=== PATIENT | female | born 1955 ===

== ENCOUNTER 2022-12-14 10:11 | Inpatient (IN) ==
[2022-12-14 11:29] LABS: Basophils % 0.5 % (0.0-0.8); Eosinophils # 0.2 10*3/uL (0.0-0.87); Eosinophils % 3.3 % (0.00-10.9); Hematocrit 24.2 VOL% (35.7-47.0); Hemoglobin 6.9 GM/DL (12.0-16.0); Immature Granulocytes % 1.3 %; Immature Granulocytes Absolute 0.08 #; Lymphocytes # 0.6 10*3/uL (1.4-4.0); Lymphocytes % 9.6 % (21.3-54.2); Mean Corpuscular HGB Conc 28.5 GM/DL (32-36); Mean Corpuscular Volume 103.9 FL (87-102); Mean Platelet Volume 10.6 FL (9.6-12.0); Monocytes # 0.6 10*3/uL (0.11-0.8); Monocytes % 9.2 % (1.7-12.7); NRBC # 0.03 10*3/uL; Neutrophils % 76.1 % (38.7-73.9); Platelet Count 132 T/CUMM (130-400); Red Blood Count 2.33 MC/CUMM (3.8-5.5); Red Cell Distribution Width 17.4 % (9.3-17.3); White Blood Count 6.3 T/CUMM (4-12)
[2022-12-14 11:49] LABS: INR 1.1; PT Patient Result 12.1 SECS (10.1-12.1)
[2022-12-14 11:52] LABS: Albumin 2.5 G/DL (3.4-5.0); Bilirubin,Total 0.4 MG/DL (0.20-1.00); Calcium 6.2 MG/DL (8.5-10.1); Osmolality,Calculated 329.7 MOS/KG (273-304); Potassium 4.4 MMOL/L (3.5-5.1); Total Protein 6.6 G/DL (6.4-8.2)
[2022-12-14] MEDS ORDERED: SODIUM CHLORIDE 0.9% 1,000 ML IV STA (11:55)
[2022-12-14] MEDS ORDERED: BISACODYL 5 MG TABLET PO PRN (11:57)
[2022-12-14] MEDS ORDERED: ACETAMINOPHEN 325 MG TABLET PO PRN (11:57)
[2022-12-14] MEDS ORDERED: HYDROmorphone 1 MG/1 ML SYRINGE IV PRN (11:57)
[2022-12-14 12:05] LABS: Anisocytosis Slight; Macrocytosis Slight; Microcytosis Slight; Platelet Estimate Adequate
[2022-12-14 12:06] LABS: Polychromasia Slight
[2022-12-14] MEDS ORDERED: GLUCAGON 1 MG VIAL IM PRN (12:36)
[2022-12-14] MEDS ORDERED: SODIUM CHLORIDE 0.9% 1,000 ML IV PRN (12:38)
[2022-12-14] MEDS ORDERED: DEXTROSE 10% 250 ML BAG IV PRN (12:51)
[2022-12-14] MEDS: PIPERACILLIN/TAZOBACTAM 3,375 MG in SODIUM CHLORIDE 0.9% 100 ML IV SCH (12:52)
[2022-12-14] MEDS: LACTATED RINGERS 1,000 ML IV SCH (14:08)
[2022-12-14] MEDS ORDERED: VANCOMYCIN INJ 2,500 MG in SODIUM CHLORIDE 0.9% 500 ML IV ONE (15:00)
[2022-12-14] MEDS ORDERED: FUROSEMIDE 40 MG/4 ML VIAL IV ONE ×2 (17:06→19:30)
[2022-12-15] MEDS: PIPERACILLIN/TAZOBACTAM 3,375 MG in SODIUM CHLORIDE 0.9% 100 ML IV SCH ×3 (00:26→23:23)
[2022-12-15 01:18] LABS: Hematocrit 27.2 VOL% (35.7-47.0); Hemoglobin 7.9 GM/DL (12.0-16.0)
[2022-12-15 05:08] LABS: Basophils % 0.6 % (0.0-0.8); Eosinophils # 0.2 10*3/uL (0.0-0.87); Eosinophils % 3.3 % (0.00-10.9); Hemoglobin 8.2 GM/DL (12.0-16.0); Immature Granulocytes % 1.7 %; Immature Granulocytes Absolute 0.12 #; Lymphocytes # 0.7 10*3/uL (1.4-4.0); Lymphocytes % 9.7 % (21.3-54.2); Mean Corpuscular HGB Conc 29.3 GM/DL (32-36); Mean Corpuscular Volume 101.4 FL (87-102); Mean Platelet Volume 10.8 FL (9.6-12.0); Monocytes # 0.6 10*3/uL (0.11-0.8); Monocytes % 8.7 % (1.7-12.7); NRBC # 0.04 10*3/uL; Platelet Count 127 T/CUMM (130-400); Red Blood Count 2.76 MC/CUMM (3.8-5.5); White Blood Count 6.9 T/CUMM (4-12)
[2022-12-15 05:34] LABS: Albumin 2.3 G/DL (3.4-5.0); Bilirubin,Total 0.4 MG/DL (0.20-1.00); Calcium 6.3 MG/DL (8.5-10.1); Osmolality,Calculated 326.8 MOS/KG (273-304); Potassium 4.5 MMOL/L (3.5-5.1); Total Protein 6.6 G/DL (6.4-8.2)
[2022-12-15] MEDS ORDERED: VANCOMYCIN INJ 1,500 MG in SODIUM CHLORIDE 0.9% 500 ML IV PRN (08:02)
[2022-12-15] MEDS ORDERED: SODIUM BICARBONATE 650 MG TABLET PO SCH (09:00)
[2022-12-15] MEDS: LACTATED RINGERS 1,000 ML IV SCH ×2 (09:08)
[2022-12-15] MEDS: PANTOPRAZOLE 40 MG TABLET PO SCH (09:08)
[2022-12-15] MEDS ORDERED: LACTATED RINGERS 1,000 ML IV SCH (10:00)
[2022-12-15] MEDS ORDERED: fentaNYL 100 MCG/2 ML VIAL ONE (10:19)
[2022-12-15] MEDS ORDERED: MIDAZOLAM 2 MG/2 ML VIAL ONE (10:20)
[2022-12-15] MEDS: SODIUM BICARBONATE 650 MG TABLET PO SCH (21:10)
[2022-12-15] MEDS: HEPARIN 5,000 UNIT/1 ML VIAL SUBCUT SCH (21:10)
[2022-12-15] MEDS: ATORVASTATIN 40 MG TABLET PO SCH (21:10)
[2022-12-16 03:35] LABS: Arterial Base Excess iSTAT -13 MMOL/L (-2.5-2.5); Arterial Bicarbonate iSTAT 14.6 MMOL/L (20-26); Arterial O2 Saturation iSTAT 81 % (95-100); Arterial PCO2 iSTAT 38 MM HG (35-48); Arterial PO2 iSTAT 55 MM HG (80-95); Arterial Total CO2 iSTAT 16 MMO/L (23-27); Arterial pH iSTAT 7.191 (7.35-7.45)
[2022-12-16] MEDS ORDERED: SODIUM BICARBONATE 50 MEQ/50 ML VIAL IV ONE (03:48)
[2022-12-16 06:12] LABS: Calcium 6.5 MG/DL (8.5-10.1); Osmolality,Calculated 324.7 MOS/KG (273-304); Potassium 4.9 MMOL/L (3.5-5.1)
[2022-12-16 06:20] LABS: 25 Hydroxy Vitamin D Total 20.9 NG/ML (30-100); Basophils # 0.1 10*3/uL (0.0-0.2); Basophils % 0.8 % (0.0-0.8); Eosinophils # 0.2 10*3/uL (0.0-0.87); Eosinophils % 3.5 % (0.00-10.9); Folate 15.55 NG/ML (5.38-24.0); Hemoglobin 7.7 GM/DL (12.0-16.0); Immature Granulocytes % 2.2 %; Immature Granulocytes Absolute 0.13 #; Lymphocytes # 0.7 10*3/uL (1.4-4.0); Mean Corpuscular HGB Conc 28.2 GM/DL (32-36); Mean Corpuscular Volume 101.9 FL (87-102); Mean Platelet Volume 10.3 FL (9.6-12.0); Monocytes # 0.6 10*3/uL (0.11-0.8); Monocytes % 9.8 % (1.7-12.7); NRBC # 0.04 10*3/uL; Neutrophils % 72.7 % (38.7-73.9); Platelet Count 131 T/CUMM (130-400); Red Blood Count 2.68 MC/CUMM (3.8-5.5); Red Cell Distribution Width 18.6 % (9.3-17.3)
[2022-12-16 06:22] LABS: Hematocrit 27.3 VOL% (35.7-47.0); Uric Acid 11.6 MG/DL (2.6-6.0)
[2022-12-16 06:23] LABS: % Iron Saturation 13.9 % (18-50); Ferritin 121.5 ng/mL (8-252)
[2022-12-16 07:33] LABS: Anisocytosis 2+; Burr Cells Few; Macrocytosis 1+; Ovalocytes Few; Platelet Estimate Adequate
[2022-12-16] MEDS: ONDANSETRON 4 MG/2 ML VIAL IV PRN ×2 (07:55→17:04)
[2022-12-16] MEDS ORDERED: DEXTROSE 50% 25 GM/50 ML VIAL IV PRN (08:20)
[2022-12-16] MEDS ORDERED: GLUCAGON 1 MG VIAL IM PRN (08:20)
[2022-12-16] MEDS: NEBIVOLOL 10 MG TABLET PO SCH (09:32)
[2022-12-16] MEDS: SODIUM BICARBONATE 650 MG TABLET PO SCH ×3 (09:32→20:22)
[2022-12-16] MEDS: ASPIRIN EC 81 MG TABLET PO SCH (09:33)
[2022-12-16] MEDS: amLODIPine 2.5 MG TABLET PO SCH (09:33)
[2022-12-16] MEDS: CHOLECALCIFEROL 1,000 UNIT TABLET PO SCH (09:34)
[2022-12-16] MEDS: FOLIC ACID 1 MG TABLET PO SCH (09:34)
[2022-12-16] MEDS: MULTIVITAMIN (CENTRUM) TABLET PO SCH (09:35)
[2022-12-16] MEDS: FERROUS SULFATE 325 MG TABLET PO SCH ×2 (09:35→17:07)
[2022-12-16] MEDS: PANTOPRAZOLE 40 MG TABLET PO SCH (09:35)
[2022-12-16] MEDS: ISOSORBIDE MONONITRATE 30 MG TABLET PO SCH (09:36)
[2022-12-16] MEDS: HEPARIN 5,000 UNIT/1 ML VIAL SUBCUT SCH (09:37)
[2022-12-16 09:47] LABS: Arterial Base Excess iSTAT -13 MMOL/L (-2.5-2.5); Arterial Bicarbonate iSTAT 14.2 MMOL/L (20-26); Arterial O2 Saturation iSTAT 96 % (95-100); Arterial PCO2 iSTAT 38 MM HG (35-48); Arterial PO2 iSTAT 102 MM HG (80-95); Arterial Total CO2 iSTAT 15 MMO/L (23-27); Arterial pH iSTAT 7.181 (7.35-7.45)
[2022-12-16 12:21] LABS: Calcium 6.2 MG/DL (8.5-10.1); Osmolality,Calculated 327.6 MOS/KG (273-304); Potassium 4.9 MMOL/L (3.5-5.1)
[2022-12-16] MEDS: PIPERACILLIN/TAZOBACTAM 3,375 MG in SODIUM CHLORIDE 0.9% 100 ML IV SCH (12:30)
[2022-12-16] MEDS: ATORVASTATIN 40 MG TABLET PO SCH (20:22)
[2022-12-17] MEDS: PIPERACILLIN/TAZOBACTAM 3,375 MG in SODIUM CHLORIDE 0.9% 100 ML IV SCH ×3 (00:25→23:54)
[2022-12-17 05:00] LABS: Basophils % 0.2 % (0.0-0.8); Eosinophils % 0.5 % (0.00-10.9); Hematocrit 26.7 VOL% (35.7-47.0); Hemoglobin 7.8 GM/DL (12.0-16.0); Immature Granulocytes % 2.4 %; Immature Granulocytes Absolute 0.16 #; Lymphocytes # 0.6 10*3/uL (1.4-4.0); Mean Corpuscular HGB Conc 29.2 GM/DL (32-36); Mean Corpuscular Volume 102.3 FL (87-102); Mean Platelet Volume 10.5 FL (9.6-12.0); Monocytes # 0.6 10*3/uL (0.11-0.8); Monocytes % 8.6 % (1.7-12.7); NRBC # 0.02 10*3/uL; Neutrophils % 79.3 % (38.7-73.9); Platelet Count 117 T/CUMM (130-400); Red Blood Count 2.61 MC/CUMM (3.8-5.5); Red Cell Distribution Width 18.6 % (9.3-17.3); White Blood Count 6.7 T/CUMM (4-12)
[2022-12-17 05:12] LABS: Calcium 6.3 MG/DL (8.5-10.1); Osmolality,Calculated 326.7 MOS/KG (273-304); Potassium 5.2 MMOL/L (3.5-5.1)
[2022-12-17 05:17] LABS: Hypochromia 1+; Platelet Estimate Normal
[2022-12-17] MEDS ORDERED: BUPIVACAINE MPF 0.25% 10 ML VIAL ONE (07:57)
[2022-12-17] MEDS ORDERED: TISSUE ADHESIVE 1 EACH APPLICATOR TOP ONE (07:57)
[2022-12-17] MEDS ORDERED: HEPARIN 5,000 UNIT/1 ML VIAL ONE (07:57)
[2022-12-17] MEDS ORDERED: LIDOCAINE 1%/EPI INJ 20 ML VIAL ONE (07:58)
[2022-12-17] MEDS ORDERED: fentaNYL 100 MCG/2 ML VIAL ONE (08:01)
[2022-12-17] MEDS ORDERED: propofoL 200 MG/20 ML VIAL IV ONE (08:01)
[2022-12-17] MEDS ORDERED: SODIUM CHLORIDE 0.9% 250 ML IV ONE (08:34)
[2022-12-17] MEDS ORDERED: CALCIUM CHLORIDE 1,000 MG/10 ML VIAL IV ONE (08:44)
[2022-12-17] MEDS ORDERED: DEXTROSE 50% 25 GM/50 ML VIAL IV PRN (09:56)
[2022-12-17] MEDS ORDERED: GLUCAGON 1 MG VIAL IM PRN (09:56)
[2022-12-17] MEDS: ISOSORBIDE MONONITRATE 30 MG TABLET PO SCH (10:14)
[2022-12-17] MEDS: CHOLECALCIFEROL 1,000 UNIT TABLET PO SCH (10:15)
[2022-12-17] MEDS: ASPIRIN EC 81 MG TABLET PO SCH (10:15)
[2022-12-17] MEDS: SODIUM BICARBONATE 650 MG TABLET PO SCH ×3 (10:16→22:05)
[2022-12-17] MEDS: amLODIPine 2.5 MG TABLET PO SCH (10:17)
[2022-12-17] MEDS: PANTOPRAZOLE 40 MG TABLET PO SCH (10:17)
[2022-12-17] MEDS: MULTIVITAMIN (CENTRUM) TABLET PO SCH (10:17)
[2022-12-17] MEDS: FERROUS SULFATE 325 MG TABLET PO SCH ×2 (10:18→17:57)
[2022-12-17] MEDS: FOLIC ACID 1 MG TABLET PO SCH (10:18)
[2022-12-17] MEDS: NEBIVOLOL 10 MG TABLET PO SCH (10:18)
[2022-12-17 10:43] LABS: Hepatitis B Core IgM Quant 0.07 Index; Hepatitis B Surface Ag Quant < 0.10 Index; Hepatitis B Surface Ag Result Non-Reactive (NonReactive); Hepatitis C Virus Ab Quant 0.05 Index; Hepatitis C Virus Ab Result Non-Reactive (NonReactive)
[2022-12-17] MEDS ORDERED: HEPARIN 10,000 UNIT/10 ML VIAL IV PRN (14:45)
[2022-12-17] MEDS: ONDANSETRON 4 MG/2 ML VIAL IV PRN (22:04)
[2022-12-17] MEDS: ATORVASTATIN 40 MG TABLET PO SCH (22:05)
[2022-12-18] MEDS: ONDANSETRON 4 MG/2 ML VIAL IV PRN (04:26)
[2022-12-18 05:04] LABS: Basophils % 0.3 % (0.0-0.8); Eosinophils # 0.1 10*3/uL (0.0-0.87); Eosinophils % 1.3 % (0.00-10.9); Hematocrit 27.2 VOL% (35.7-47.0); Immature Granulocytes % 0.9 %; Immature Granulocytes Absolute 0.06 #; Lymphocytes # 0.4 10*3/uL (1.4-4.0); Mean Corpuscular HGB Conc 29.4 GM/DL (32-36); Mean Corpuscular Volume 101.9 FL (87-102); Mean Platelet Volume 10.6 FL (9.6-12.0); Monocytes # 0.7 10*3/uL (0.11-0.8); Monocytes % 9.7 % (1.7-12.7); NRBC # 0.02 10*3/uL; Neutrophils % 81.8 % (38.7-73.9); Platelet Count 96 T/CUMM (130-400); Red Blood Count 2.67 MC/CUMM (3.8-5.5); Red Cell Distribution Width 18.7 % (9.3-17.3); White Blood Count 6.79 T/CUMM (4-12)
[2022-12-18 05:06] LABS: Calcium 6.8 MG/DL (8.5-10.1); Osmolality,Calculated 304.4 MOS/KG (273-304); Potassium 4.1 MMOL/L (3.5-5.1)
[2022-12-18 05:14] LABS: Hypochromia Slight; Platelet Estimate Decreased
[2022-12-18] MEDS: SODIUM BICARBONATE 650 MG TABLET PO SCH ×3 (08:43→21:12)
[2022-12-18] MEDS: CHOLECALCIFEROL 1,000 UNIT TABLET PO SCH (08:44)
[2022-12-18] MEDS: FOLIC ACID 1 MG TABLET PO SCH (08:45)
[2022-12-18] MEDS: NEBIVOLOL 10 MG TABLET PO SCH (08:45)
[2022-12-18] MEDS: MULTIVITAMIN (CENTRUM) TABLET PO SCH (08:46)
[2022-12-18] MEDS: ASPIRIN EC 81 MG TABLET PO SCH (08:46)
[2022-12-18] MEDS: ISOSORBIDE MONONITRATE 30 MG TABLET PO SCH (08:46)
[2022-12-18] MEDS: FERROUS SULFATE 325 MG TABLET PO SCH ×2 (08:46→16:55)
[2022-12-18] MEDS: PANTOPRAZOLE 40 MG TABLET PO SCH (08:47)
[2022-12-18] MEDS: PIPERACILLIN/TAZOBACTAM 3,375 MG in SODIUM CHLORIDE 0.9% 100 ML IV SCH ×2 (12:00→23:27)
[2022-12-18] MEDS: amLODIPine 2.5 MG TABLET PO SCH (12:36)
[2022-12-18] MEDS: ATORVASTATIN 40 MG TABLET PO SCH (21:13)
[2022-12-19 06:13] LABS: Basophils % 0.4 % (0.0-0.8); Eosinophils % 0.4 % (0.00-10.9); Hematocrit 26.5 VOL% (35.7-47.0); Hemoglobin 7.9 GM/DL (12.0-16.0); Immature Granulocytes % 1.3 %; Immature Granulocytes Absolute 0.11 #; Lymphocytes # 0.6 10*3/uL (1.4-4.0); Lymphocytes % 7.2 % (21.3-54.2); Mean Corpuscular HGB Conc 29.8 GM/DL (32-36); Mean Corpuscular Volume 97.8 FL (87-102); Mean Platelet Volume 10.5 FL (9.6-12.0); Monocytes # 0.8 10*3/uL (0.11-0.8); Monocytes % 9.6 % (1.7-12.7); NRBC # 0.03 10*3/uL; Neutrophils % 81.1 % (38.7-73.9); Platelet Count 107 T/CUMM (130-400); Red Blood Count 2.71 MC/CUMM (3.8-5.5); Red Cell Distribution Width 18.7 % (9.3-17.3); White Blood Count 8.15 T/CUMM (4-12)
[2022-12-19 06:40] LABS: Calcium 6.9 MG/DL (8.5-10.1); Osmolality,Calculated 313.7 MOS/KG (273-304); Potassium 4.8 MMOL/L (3.5-5.1)
[2022-12-19] MEDS: PANTOPRAZOLE 40 MG TABLET PO SCH (08:01)
[2022-12-19] MEDS: CHOLECALCIFEROL 1,000 UNIT TABLET PO SCH (08:01)
[2022-12-19] MEDS: FOLIC ACID 1 MG TABLET PO SCH (08:01)
[2022-12-19] MEDS: NEBIVOLOL 10 MG TABLET PO SCH (08:01)
[2022-12-19] MEDS: FERROUS SULFATE 325 MG TABLET PO SCH ×2 (08:01→17:08)
[2022-12-19] MEDS: amLODIPine 2.5 MG TABLET PO SCH (08:01)
[2022-12-19] MEDS: ISOSORBIDE MONONITRATE 30 MG TABLET PO SCH (08:01)
[2022-12-19] MEDS: MULTIVITAMIN (CENTRUM) TABLET PO SCH (08:01)
[2022-12-19] MEDS: SODIUM BICARBONATE 650 MG TABLET PO SCH (08:01)
[2022-12-19] MEDS: ASPIRIN EC 81 MG TABLET PO SCH (08:02)
[2022-12-19] MEDS: PIPERACILLIN/TAZOBACTAM 3,375 MG in SODIUM CHLORIDE 0.9% 100 ML IV SCH (12:30)
[2022-12-19] MEDS: ONDANSETRON 4 MG/2 ML VIAL IV PRN ×2 (14:39→18:45)
[2022-12-19] MEDS: ATORVASTATIN 40 MG TABLET PO SCH (20:47)
[2022-12-19] MEDS: LACTATED RINGERS 1,000 ML IV SCH (22:37)
[2022-12-20 04:53] LABS: Basophils % 0.5 % (0.0-0.8); Eosinophils # 0.1 10*3/uL (0.0-0.87); Eosinophils % 1.5 % (0.00-10.9); Hematocrit 25.1 VOL% (35.7-47.0); Hemoglobin 7.4 GM/DL (12.0-16.0); Immature Granulocytes % 0.7 %; Immature Granulocytes Absolute 0.05 #; Lymphocytes # 0.7 10*3/uL (1.4-4.0); Lymphocytes % 9.2 % (21.3-54.2); Mean Corpuscular HGB Conc 29.5 GM/DL (32-36); Mean Corpuscular Volume 98.8 FL (87-102); Mean Platelet Volume 10.8 FL (9.6-12.0); Monocytes # 0.9 10*3/uL (0.11-0.8); Monocytes % 12.2 % (1.7-12.7); Neutrophils % 75.9 % (38.7-73.9); Platelet Count 87 T/CUMM (130-400); Red Blood Count 2.54 MC/CUMM (3.8-5.5); Red Cell Distribution Width 18.5 % (9.3-17.3); White Blood Count 7.31 T/CUMM (4-12)
[2022-12-20 05:12] LABS: Macrocytosis 1+; Ovalocytes Few; Polychromasia Slight
[2022-12-20 05:14] LABS: Hypochromia Slight
[2022-12-20 05:19] LABS: Calcium 6.9 MG/DL (8.5-10.1); Osmolality,Calculated 297.3 MOS/KG (273-304)
[2022-12-20] MEDS: MULTIVITAMIN (CENTRUM) TABLET PO SCH (08:56)
[2022-12-20] MEDS: CHOLECALCIFEROL 5,000 UNIT TABLET PO SCH (08:56)
[2022-12-20] MEDS: ASPIRIN EC 81 MG TABLET PO SCH (08:56)
[2022-12-20] MEDS: NEBIVOLOL 10 MG TABLET PO SCH (08:56)
[2022-12-20] MEDS: FERROUS SULFATE 325 MG TABLET PO SCH ×2 (08:56→16:03)
[2022-12-20] MEDS: ISOSORBIDE MONONITRATE 30 MG TABLET PO SCH (08:56)
[2022-12-20] MEDS: PANTOPRAZOLE 40 MG TABLET PO SCH (08:56)
[2022-12-20] MEDS: ONDANSETRON 4 MG/2 ML VIAL IV PRN (13:25)
[2022-12-20] MEDS ORDERED: PROMETHAZINE 25 MG/1 ML VIAL IM PRN (16:55)
[2022-12-20] MEDS ORDERED: NON-FORMULARY MEDICATION PO SCH (17:00)
[2022-12-20] MEDS: ATORVASTATIN 40 MG TABLET PO SCH (20:31)
[2022-12-21 07:37] LABS: Basophils # 0.1 10*3/uL (0.0-0.2); Basophils % 0.6 % (0.0-0.8); Eosinophils # 0.1 10*3/uL (0.0-0.87); Eosinophils % 1.3 % (0.00-10.9); Hematocrit 26.8 VOL% (35.7-47.0); Hemoglobin 7.8 GM/DL (12.0-16.0); Immature Granulocytes % 0.8 %; Immature Granulocytes Absolute 0.08 #; Lymphocytes # 0.9 10*3/uL (1.4-4.0); Mean Corpuscular HGB Conc 29.1 GM/DL (32-36); Mean Corpuscular Volume 100.4 FL (87-102); Mean Platelet Volume 11.4 FL (9.6-12.0); Monocytes # 1.1 10*3/uL (0.11-0.8); NRBC # 0.03 10*3/uL; Neutrophils % 76.3 % (38.7-73.9); Platelet Count 97 T/CUMM (130-400); Red Blood Count 2.67 MC/CUMM (3.8-5.5); Red Cell Distribution Width 18.5 % (9.3-17.3); White Blood Count 9.48 T/CUMM (4-12)
[2022-12-21 07:41] LABS: Albumin 2.3 G/DL (3.4-5.0); Calcium 7.3 MG/DL (8.5-10.1); Osmolality,Calculated 287.3 MOS/KG (273-304); Potassium 3.9 MMOL/L (3.5-5.1); Total Protein 6.4 G/DL (6.4-8.2)
[2022-12-21] MEDS: NEBIVOLOL 10 MG TABLET PO SCH (09:06)
[2022-12-21] MEDS: MULTIVITAMIN (CENTRUM) TABLET PO SCH (09:06)
[2022-12-21] MEDS: ISOSORBIDE MONONITRATE 30 MG TABLET PO SCH (09:07)
[2022-12-21] MEDS: FERROUS SULFATE 325 MG TABLET PO SCH ×2 (09:07→18:25)
[2022-12-21] MEDS: ASPIRIN EC 81 MG TABLET PO SCH (09:07)
[2022-12-21] MEDS: PANTOPRAZOLE 40 MG TABLET PO SCH (09:07)
[2022-12-21] MEDS: CHOLECALCIFEROL 5,000 UNIT TABLET PO SCH (09:07)
[2022-12-21] MEDS ORDERED: DIPHENOXYLATE/ATROPINE 2.5-0.025 MG TABLET PO PRN (14:42)
[2022-12-21] MEDS: ATORVASTATIN 40 MG TABLET PO SCH (21:29)
[2022-12-22 04:55] LABS: Basophils # 0.1 10*3/uL (0.0-0.2); Basophils % 0.6 % (0.0-0.8); Eosinophils # 0.2 10*3/uL (0.0-0.87); Eosinophils % 2.5 % (0.00-10.9); Hemoglobin 7.8 GM/DL (12.0-16.0); Immature Granulocytes Absolute 0.09 #; Lymphocytes # 0.9 10*3/uL (1.4-4.0); Lymphocytes % 10.1 % (21.3-54.2); Mean Corpuscular HGB Conc 28.9 GM/DL (32-36); Mean Corpuscular Volume 100.7 FL (87-102); Mean Platelet Volume 11.1 FL (9.6-12.0); Monocytes # 1.2 10*3/uL (0.11-0.8); Monocytes % 13.2 % (1.7-12.7); NRBC # 0.04 10*3/uL; Neutrophils % 72.6 % (38.7-73.9); Platelet Count 100 T/CUMM (130-400); Red Blood Count 2.68 MC/CUMM (3.8-5.5); Red Cell Distribution Width 18.6 % (9.3-17.3); White Blood Count 8.82 T/CUMM (4-12)
[2022-12-22 05:13] LABS: Calcium 7.2 MG/DL (8.5-10.1); Osmolality,Calculated 286.5 MOS/KG (273-304); Potassium 3.7 MMOL/L (3.5-5.1)
[2022-12-22 14:20] VITALS: BP 155/71
== END 2022-12-22 16:00 | disposition home health service (06) | DRG 255 ==
LOC: N.ED 10:11 → SUATTDRO 12:47 → N.3E 15:13
PROVIDERS: ADMIT Internal Medicine Geriatric Medicine; ATTEND Hospitalist